=== PATIENT | male | born 1960 | race Caucasian/White ===

== ENCOUNTER 2018-07-03 10:05 | Day surgery (SDC) | payer MEDICAID ==
[2018-06-29 09:36] LABS: BASOPHILS % (AUTO) 0.5 % (0-1); EOSINOPHILS # (AUTO) 0.2 X10'3 (0-0.9); EOSINOPHILS % (AUTO) 3.2 % (0-6); HEMATOCRIT 47.7 % (42.0-52.0); HEMOGLOBIN 16.4 g/dl (14.0-17.9); LYMPHOCYTES # (AUTO) 0.7 X10'3 (1.1-4.8); MEAN CORPUSCULAR HEMOGLOBIN 30.7 PG (27.0-31.0); MEAN CORPUSCULAR HGB CONC 34.5 % (33.0-36.5); MEAN CORPUSCULAR VOLUME 89.1 FL (78-98); MEAN PLATELET VOLUME 5.9 FL (7.4-10.4); MONOCYTES # (AUTO) 0.5 X10'3 (0-0.9); MONOCYTES % (AUTO) 8.5 % (2-12); NEUTROPHILS # (AUTO) 4.2 X10'3 (1.8-7.7); NEUTROPHILS % (AUTO) 74.8 % (42-75); PLATELET COUNT 265 X10'3 (140-440); RED BLOOD COUNT 5.35 X10'6 (4.70-6.10); RED CELL DISTRIBUTION WIDTH 14.5 % (11.5-14.5); WHITE BLOOD COUNT 5.7 X10'3 (4.5-11.0)
[2018-06-29 09:50] LABS: ALANINE AMINOTRANSFERASE 48 U/L (12-78); ALBUMIN 3.6 G/DL (3.4-5.0); ALKALINE PHOSPHATASE 60 IU/L (46-116); ANION GAP 7 (8-16); ASPARTATE AMINO TRANSFERASE 26 U/L (10-37); BILIRUBIN,TOTAL 0.5 MG/DL (0.1-1.0); BLOOD UREA NITROGEN 13 MG/DL (7-18); BUN/CREATININE RATIO 8.5 (5.4-32.0); CALCIUM 8.5 MG/DL (8.5-10.1); CHLORIDE 105 MMOL/L (99-107); CREATININE 1.53 MG/DL (0.60-1.10); GLUCOSE 99 MG/DL (70-104); POTASSIUM 4.3 MMOL/L (3.5-5.1); SODIUM 140 MMOL/L (135-145); TOTAL CARBON DIOXIDE 27.9 MMOL/L (24-32); TOTAL PROTEIN 7.2 G/DL (6.4-8.2); eGFR 47 ML/MIN
[2018-06-29 09:54] LABS: INR 3.1 INR; PARTIAL THROMBOPLASTIN TIME 46 SECONDS (22-32); PROTHROMBIN TIME 30.8 SECONDS (9.0-12.0)
[~2018-07-03] VITALS: Ht 182.9 cm; Wt 114.0 kg
[2018-07-03] VITALS (12 sets, daily range): BP systolic 106–141; BP diastolic 46–83
[~2018-07-03 10:05] MED LIST: COU7.5T PO; FLUO20CA39 PO; METO1TAB25 PO; SULF5DRO LEFTEYE
[2018-07-03] MEDS ORDERED: METO-395 PO (10:35)
[2018-07-03] MEDS ORDERED: TEST200V10 IM (10:35)
[2018-07-03] MEDS ORDERED: nitroGLYCERIN 0.4mg SUBLingual tab SL PRN (10:35)
[2018-07-03] MEDS ORDERED: MELO-102 PO ×2 (10:35→10:37)
[2018-07-03] MEDS ORDERED: normal saline 1000ml 1,000 ML IV SCH (10:40)
[2018-07-03] MEDS ORDERED: LORazepam 0.5 MG tablet PO PRN (10:40)
[2018-07-03] MEDS ORDERED: diphenhydrAMINE 25mg capsule PO PRN (10:40)
[2018-07-03 11:12] LABS: INR 2.5 INR; PARTIAL THROMBOPLASTIN TIME 41 SECONDS (22-32); PROTHROMBIN TIME 24.9 SECONDS (9.0-12.0)
[2018-07-03] MEDS ORDERED: phytonadione inj. 2.5 MG in normal saline 100ml IV soln 99.75 ML IV ONE (11:30)
[2018-07-03] MEDS ORDERED: phytonadione 10 MG/1 ML amp PO ONE (11:50)
[2018-07-03] MEDS ORDERED: midazolam 2 mg/2 ml injection ONE ×2 (11:58→12:44)
[2018-07-03] MEDS ORDERED: iohexol 350MG/ML 100ml bottle IV ONE (11:58)
[2018-07-03] MEDS ORDERED: iohexol 350 MG/ML 50ML vial IV ONE (11:58)
[2018-07-03] MEDS ORDERED: fentaNYL/PF 50MCG/1 ML 2ML syringe ONE (11:58)
[2018-07-03] MEDS ORDERED: LIDOcaine 1% 30ml preserv. free vial ONE (11:58)
[2018-07-03] MEDS ORDERED: ondansetron/PF 4mg/2ml inj IV PRN (13:15)
[2018-07-03] MEDS ORDERED: HYDROcodone/acetaminophen 5mg/325mg tablet PO PRN (13:15)
[2018-07-03] MEDS ORDERED: proCHLORperazine 10 MG/2 ml inj IV PRN (13:20)
[2018-07-03] MEDS ORDERED: HYDROcodone/acetaminophen 10/325mg tab PO PRN (13:20)
[2018-07-03] MEDS ORDERED: OXAZEpam 15mg capsule PO PRN (13:20)
[2018-07-03] MEDS ORDERED: acetaminophen 325mg tablet PO PRN (13:20)
== END 2018-07-03 19:00 | disposition home or self-care (01) ==
LOC: SSTAY O 10:05
PROVIDERS: ATTEND Internal Medicine Cardiovascular Disease
DX: I25.10 Atherosclerotic heart disease of native coronary artery without angina pectoris (principal); D68.51 Activated protein C resistance; I10 Essential (primary) hypertension; E78.5 Hyperlipidemia, unspecified; G47.33 Obstructive sleep apnea (adult) (pediatric); M17.0 Bilateral primary osteoarthritis of knee; F41.8 Other specified anxiety disorders; Z86.718 Personal history of other venous thrombosis and embolism; Z86.711 Personal history of pulmonary embolism; Z79.01 Long term (current) use of anticoagulants; Z96.652 Presence of left artificial knee joint; Z99.81 Dependence on supplemental oxygen; Z98.890 Other specified postprocedural states; Z79.899 Other long term (current) drug therapy; Z84.81 Family history of carrier of genetic disease
CPT/HCPCS: 36415; 71046; 80053; 85025; 85610; 85730; 93458; 99152; 99153; A6257; C1760; C1769; J1644; J2250; J3010; J3430; J3490; J7030; Q0163; Q9967; A4620; A6449

== ENCOUNTER 2021-06-14 15:13 | Outpatient (CLI) | payer MEDICAID ==
[~2021-06-14 15:13] MED LIST changes: +MELO-102 PO; +METO-395 PO; -METO1TAB25 PO; -SULF5DRO LEFTEYE; +TEST200V10 IM
== END 2021-06-14 23:59 | disposition home or self-care (01) ==
LOC: RAD 15:13
PROVIDERS: ATTEND Family Medicine
DX: Z86.718 Personal history of other venous thrombosis and embolism (principal); Z86.2 Personal history of diseases of the blood and blood-forming organs and certain disorders involving the immune mechanism
CPT/HCPCS: 36415; 85610

== ENCOUNTER 2023-01-19 22:00 | Emergency (ER) | payer MEDICAID ==
[~2023-01-19] VITALS: Ht 182.9 cm; Wt 116.8 kg
[~2023-01-19 22:00] MED LIST changes: -TEST200V10 IM; +TEST200V33 IM
[2023-01-19 22:29] VITALS: BP 190/104
[2023-01-19] MEDS ORDERED: HYDROcodone/acetaminophen 10/325mg tab PO ONE (23:30)
[2023-01-19] MEDS ORDERED: HYDR-3972 PO (23:37)
[2023-01-19] MEDS ORDERED: BUPIVAcaine/PF 2.5mg/ml (0.25%) 10ml vial IJ ONE (23:40)
== END 2023-01-20 00:08 | disposition home or self-care (01) ==
LOC: ER 22:01
DX: K08.89 Other specified disorders of teeth and supporting structures (principal); Z79.899 Other long term (current) drug therapy; Z79.1 Long term (current) use of non-steroidal anti-inflammatories (NSAID); Z79.2 Long term (current) use of antibiotics
CPT/HCPCS: 64400; 99284

== ENCOUNTER 2023-01-20 05:53 | Emergency (ER) | payer MEDICAID ==
[~2023-01-20 05:53] MED LIST changes: +HYDR-3972 PO
--- NOTE | 2023-01-20 06:13 | NUR ---
PATIENT STARTED YELLING AT TRIAGE NURSE IN A THREATNING MANNER SWINGING HANDS ASKED PATIENT TO LEAVE TRIAGE ROOM FOR PLAY WRITER SAFETY, PATIENT UPSET THEY WERE HERE LAST NIGHT AND CHIEF COMPLAINT WAS NO IMPROVED UPON DISCHARGE PATIENT YELLING CUSS WORDS IN LOBBY TO SECURITY PATIENT IS BECOMING A THREAT TO STAFF SECURITY ESCORTING PATIENT OFF PROPERTY
== END 2023-01-20 06:19 | disposition left against medical advice (07) ==
LOC: ER 05:54
DX: K08.89 Other specified disorders of teeth and supporting structures (principal); Z53.21 Procedure and treatment not carried out due to patient leaving prior to being seen by health care provider

== ENCOUNTER → 2024-01-31 | Outpatient (CLI) | payer MEDICAID ==
[~2024-01-31] MED LIST changes: -HYDR-3972 PO
== END | disposition home or self-care (01) ==
LOC: RAD 09:04
PROVIDERS: ATTEND Family Medicine
DX: J22 Unspecified acute lower respiratory infection (principal); R06.2 Wheezing; Z86.16 Personal history of COVID-19
CPT/HCPCS: 71046